=== PATIENT | female | born 1995 | race Caucasian/White ===

== ENCOUNTER 2024-05-28 19:07 | Emergency (ER) | payer MEDICAID, SELFPAY ==
[2024-05-28 19:19] VITALS: BP 117/83; PULSE 87; RESP 18; TEMP 36.2; O2SAT 96; BMI 18.5
[2024-05-28 19:28] VITALS: BP 117/83; PULSE 87; RESP 18; TEMP 36.2; O2SAT 96
--- NOTE | 2024-05-28 19:35 | CRLHL7_ITS ---
For Patients: As a result of the Century Cures Act, medical imaging exams and procedure reports are released immediately into your electronic medical record. You may view this report before your referring provider. If you have questions, please contact your health care provider. INDICATION: Headache, dizziness TECHNIQUE: Noncontrast axial CT of the head. Coronal and sagittal reformats. Bone and soft tissue algorithms. COMPARISON: None. FINDINGS: The ventricles and cortical sulci appear age-appropriate. No midline shift or mass effect. No acute intracranial hemorrhage or extra-axial fluid collection. Purvis-white matter differentiation is grossly maintained. White matter attenuation is within normal limits. Intracranial vessels are unremarkable for technique. Midline structures are unremarkable. The calvarium appears grossly intact. Visualized paranasal sinuses and mastoid air cells are clear. Orbits are unremarkable. IMPRESSION: 1. Unremarkable CT head. No evidence of acute intracranial abnormality. Please note that all CT scans at this facility use dose modulation, iterative reconstruction, and/or weight-based dosing when appropriate to reduce radiation dose to as low as reasonably achievable. Dictated by Myriam Gallegos MD @ 05/28/2024 8:40:30 PM (Electronically Signed)
--- NOTE | 2024-05-28 19:50 | ED.GENADULT ---
HPI - General Adult General Date Seen: 05/28/24 Chief complaint: Shortness of Breath/Dyspnea Stated complaint: shortness of breath, dizzy Time Seen by Provider: 05/28/24 19:12 Source: patient Mode of arrival: ambulatory Limitations: no limitations History of Present Illness HPI narrative: Patient is a 29-year-old female presenting to emergency department for multiple complaints. She has POTS and takes medication for it. States flu last week and a half she has been having shortness of breath, dizziness and leg pain. Has had shortness of breath before but she states this feels different. Started developing headache over the past 2 or 3 days and states are symptoms have gotten worse since that. States it feels like there is a band around her head. Is concerned because the dizziness and headache has been getting worse. Has had headaches before but she states this seems different. Also states that night both of her legs feel like they swell up and become very warm and make it difficult to sleep. The shortness of breath is also making it difficult to sleep she states. Has no history of blood clots. Has not had any fevers or chills. Has not noticed any chest pain. Does feel some burning epigastric pain she states. Has not had any vomiting but is nauseated. Taking Zofran at home without improvement in her symptoms. Has not noticed any numbness or vision changes. Related Data Allergies Allergy/AdvReac Type Severity Reaction Status Date / Time Penicillins Allergy Mild Verified 05/28/24 19:37 prednisone Allergy Mild Verified 05/28/24 19:37 Review of Systems Status of ROS: Reports: 10 or more systems reviewed and unremarkable except as noted in History and below [facility] Medical History POTS (postural orthostatic tachycardia syndrome) ?G90.A - Postural orthostatic tachycardia syndrome [POTS] (ICD-10) Social History Smoking Status: Never smoker How often do you have a drink containing alcohol: never AUDIT-C Alcohol total score: 0 Non-prescribed substance use: denies use service: No Exam Narrative: Exam Narrative: Const: Well-nourished, Well-developed, in mild distress Eyes: PERRL, no conjunctival injection, and symmetrical lids HENT: Atraumatic external nose and ears. Moist mucous membranes. Neck: Symmetric, trachea midline, No thyromegaly. CVS: RRR, No murmurs or gallops. Peripheral pulses 2+ and equal in all extremities, no lower extremity edema RESP: Unlabored respiratory effort. Clear to auscultation bilaterally. GI: Nontender/Nondistended, No rebound or guarding. MSK:Extremities w/o deformity, Normal Active ROM Skin: Warm, Dry. No rashes or lesions. Neuro: Normal Muscle tone, No focal neurological deficits. Psych: Awake, Alert, & Oriented x3. Appropriate mood and affect. Const: Vital Signs, click to edit/add: Vital Signs - 24 hr 05/28/24 19:19 05/28/24 19:28 05/28/24 20:39 Temperature 97.2 F L 97.2 F L 98.0 F Pulse Rate [Right Radial] 87 87 Respiratory Rate 18 18 Blood Pressure [Le ft Upper Arm] 117/83 117/83 Pulse Oximetry 96 96 Oxygen Delivery Me thod Room Air Room Air Course Vital Signs Vital signs: Initial Vital Signs Temperature 97.2 F L 05/28/24 19:19 Temperature Source Tympanic 05/28/24 19:19 Pulse Rate 87 05/28/24 19:19 Pulse Rhythm Regular 05/28/24 19:19 Pulse Strength 0+ Absent 05/28/24 19:19 Respiratory Rate 18 05/28/24 19:19 Blood Pressure 117/83 05/28/24 19:19 Blood Pressure Mean 94 05/28/24 19:19 Blood Pressure Position Supine 05/28/24 19:19 Pulse Oximetry 96 05/28/24 19:19 Oxygen Delivery Method Room Air 05/28/24 19:19 Vital Signs Temperature 97.2 F L 05/28/24 19:19 Pulse Rate 87 05/28/24 19:19 Respiratory Rate 18 05/28/24 19:19 Blood Pressure 117/83 05/28/24 19:19 Pulse Oximetry 96 05/28/24 19:19 Oxygen Delivery Method Room Air 05/28/24 19:19 Temperature 98.0 F 05/28/24 20:39 Pulse Rate 87 05/28/24 19:28 Respiratory Rate 18 05/28/24 19:28 Blood Pressure 117/83 05/28/24 19:28 Pulse Oximetry 96 05/28/24 19:28 Oxygen Delivery Method Room Air 05/28/24 19:28 Medications Administered Medications: Discontinued Medications Generic Name Dose Route Start Last Admin Trade Name Da PRN Reason Stop Dose Admin Sodium Chloride 1,000 mls @ 1,000 mls/hr 05/28/24 19:45 05/28/24 21:41 0.9 % Sodium Chloride 1000 Ml IV 05/28/24 20:44 Infused .Q1H FIDELINA Infusion Ketorolac Tromethamine 15 mg 05/28/24 19:35 05/28/24 20:39 Ketorolac 15 Mg/Ml Inj IVP 05/28/24 19:36 15 mg ONCE ONE Administration Ondansetron HCl 4 mg 05/28/24 19:35 05/28/24 20:38 Ondansetron 2 Mg/Ml Inj IVP 05/28/24 19:36 4 mg ONCE ONE Administration Medical Decision Making MDM Narrative Medical decision making narrative: Patient is a 29-year-old female presenting to the emergency department for several complaints. Is difficult to say if they are all related or not. The differential diagnosis of vertigo is broad and includes common etiologies such as menieres disease, labyrinthitis, benign positional vertigo, otitis media, etc. More serious etiologies considered include central etiologies such as tumor, intracerebral bleed, dissection, ischemic cerebral vascular accident. I have a pretty low concern for intracranial issues considering she describes her headache as a tension headache but patient is very concerned so I will do a CT scan of her head. Symptoms could also be from dehydration and will give her a migraine cocktail. She cannot take Benadryl so I will instead of doing Reglan and Benadryl try Zofran 1st. Will also give her Toradol for her headache and leg pain. The differential diagnosis of shortness of breath is broad and includes common etiologies such as COPD, asthma, pneumonia, viral syndrome, etc. More serious etiologies considered include PE, CHF, coronary artery disease, pneumothorax, aortic dissection, aortic aneurysm. She does have some asthma and has been using her inhaler at home without any improvement. Lung sound clear on my exam. This could all be related to a viral syndrome I will do a chest x-ray to look for signs of pneumonia pneumothorax. Will also order an EKG, troponin. D-dimer ordered to evaluate for PE. Patient is otherwise vitally stable an aortic dissection or aortic aneurysm seem unlikely. Patient's lab work returned showing no concerning abnormalities. D-dimer within normal limits. EKG and troponin showed no concerning abnormalities. Considering how long symptoms have been going on for do not believe repeat troponin is necessary. Viral swabs are negative. test is negative. CBC shows slightly low white blood cell count at 3.68 but unlikely to be cause of her symptoms unless she has some sort of viral syndrome. Head CT reviewed by myself and the radiologist showed no acute concerning abnormalities. Chest x-ray reviewed by myself and radiologist showed no acute concerning abnormalities. She has had some improvement in her nausea with the Zofran but no improvement in her dizziness. She describes as a vertigo sensation. States she has tried Antivert at home without any improvement in her symptoms. She also takes Ativan at home with no improvement in her symptoms. I offered her sumatriptan possibly help with the headache but she has refused at this time as she is hesitant to take medications as she states she is very sensitive to lab. At this point I have rule out emergent issues. I do not know why she is having the symptoms but again I do not see any signs of emergent issues. Patient will be discharged she is agreeable to this plan Lab Data Labs: Lab Results 05/28/24 05/28/24 05/28/24 Range/Units 19:35 20:26 20:26 WBC 3.68 L (4.50-11.00) K/uL RBC 5.12 (4.00-5.20) m/uL Hgb 15.6 (12.0-16.0) gm/dL Hct 46.2 (33.0-51.0) % MCV 90 (80-100) fL MCH 31 (26-34) pg MCHC 34 (32-36) gm/dL RDW Coeff of Rose 11.8 (11.5-15.5) % Plt Count 212 (140-440) K/uL Neut % (Auto) 51.6 (42.0-72.0) % Lymph % (Auto) 38.3 (20-44) % Bureau % (Auto) 7.1 (0.0-11.0) % Eos % (Auto) 2.7 (0.0-7.0) % Baso % (Auto) 0.3 (0.0-3.0) % Neut # (Auto) 1.90 (1.7-7.0) K/uL Lymph # (Auto) 1.40 (0.90-2.90) K/uL Bureau # (Auto) 0.30 (0.00-0.90) K/UL Eos # (Auto) 0.10 (0.00-0.50) K/uL Baso # (Auto) 0.00 (0.00-0.30) K/uL Abs Immat Gran (auto) 0.00 (0.00-0.30) K/uL Imm/Tot Granulo (auto) 0.0 % D-Dimer Quant (PE/DVT) 0.21 (0.00-0.50) ug/ml Sodium 140 (135-149) mmol/L Potassium 3.8 (3.6-5.1) mmol/L Chloride 104 (96-114) mmol/L Carbon Dioxide 26 (20-32) mmol/L Anion Gap 10 (7-15) mEq/L BUN 10 (5-24) mg/dL Creatinine 0.7 (0.5-1.5) mg/dL Estimated Creat Clear 99.30 Estimated GFR 119 ml/min Glucose 86 (60-115) mg/dL Calcium 9.2 (8.4-10.6) mg/dL Magnesium 2.3 (1.5-2.6) mg/dL Total Bilirubin 0.3 (0.1-1.5) mg/dL AST 29 (12-35) U/L ALT 23 (4-35) U/L Alkaline Phosphatase 65 (40-150) U/L Troponin I < 0.01 L (0.01-0.04) ng/mL Total Protein 7.6 (6.0-8.3) g/dL Albumin 4.8 (3.3-5.0) g/dL Lipase 193 Cancelled (23-300) U/L HCG, Qual Negative (Negative) SARS-CoV-2 (PCR) Negative SARS-CoV-2 (Negative) Influenza Type A (PCR) Negative PCR FLU A (Negative) Influenza Type B (PCR) Negative PCR FLU B (Negative) RSV (PCR) Negative PCR RSV (Negative) Imaging Data CT scan - head: Attestation: I have reviewed the pertinent imaging results. Radiologist's impression: 1. Unremarkable CT head. No evidence of acute intracranial abnormality. Please note that all CT scans at this facility use dose modulation, iterative reconstruction, and/or weight-based dosing when appropriate to reduce radiation dose to as low as reasonably achievable. Dictated by Myriam aGllegos MD @ 05/28/2024 8:40:30 PM Chest x-ray: Attestation: I have reviewed the pertinent imaging results. Radiologist's impression: No evidence of an acute pulmonary process. Dictated by Remi Carpenter MD @ 05/28/2024 9:40:52 PM ECG Data Attestation: I personally reviewed and interpreted this ECG as follows: Prior ECG tracings: not available for review Interpretation: Normal sinus rhythm with rate 73 beats per minute, normal intervals, normal axis, no ST or T-wave abnormalities Discharge Plan Discharge Clinical Impression: Nausea, Shortness of breath, Dizziness Headache Qualifiers: Headache type: tension-type Headache chronicity pattern: acute headache Intractability: not intractable Qualified Code(s): G44.209 - Tension-type headache, unspecified, not intractable Patient Disposition: Home, Self-Care Condition: Stable Instructions: Dizziness (ED) Additional Instructions: At this point I do not know what is causing her symptoms. Could be a virus but I am not finding any emergent issues on your imaging or lab work. Recommend close follow-up with your primary care provider. If symptoms worsen return for re-evaluation. Follow Up/Referrals: Provider,Not a Local [Primary Care Provider] - Stand Alone Forms: [employer] Info Instructions
--- NOTE | 2024-05-28 20:12 | CRLHL7_ITS ---
For Patients: As a result of the Century Cures Act, medical imaging exams and procedure reports are released immediately into your electronic medical record. You may view this report before your referring provider. If you have questions, please contact your health care provider. INDICATION: Shortness of breath. TECHNIQUE: Chest 2 views. COMPARISON: None. FINDINGS: Cardiovascular and mediastinum: Heart size and vasculature are normal in caliber and appearance. Lungs and pleural spaces: No focal consolidation, pleural effusion, or pneumothorax. Bones and soft tissues: Unremarkable for age. IMPRESSION: No evidence of an acute pulmonary process. Dictated by Remi Carpenter MD @ 05/28/2024 9:40:52 PM (Electronically Signed)
[2024-05-28 20:33] LABS: Basophils Percent Auto 0.3 % (0.0-3.0); Eosinophils Percent Auto 2.7 % (0.0-7.0); Hematocrit 46.2 % (33.0-51.0); Hemoglobin* 15.6 gm/dL (12.0-16.0); Lymphocytes Percent Auto 38.3 % (20-44); Mean Corpuscular HGB Conc 34 gm/dL (32-36); Mean Corpuscular Hemoglobin 31 pg (26-34); Mean Corpuscular Volume 90 fL (80-100); Monocytes Percent Auto 7.1 % (0.0-11.0); Neutrophils Percent Auto 51.6 % (42.0-72.0); Platelet Count* 212 K/uL (140-440); RDW Coefficient of Variation % 11.8 % (11.5-15.5); Red Blood Count 5.12 m/uL (4.00-5.20); White Blood Count* 3.68 K/uL (4.50-11.00)
[2024-05-28] MEDS: ONDANSETRON 2 MG/ML inj 4 MG IVP (20:38)
[2024-05-28 20:39] VITALS: TEMP 36.7
[2024-05-28] MEDS: KETOROLAC 15 MG/ML inj IVP (20:39)
[2024-05-28] MEDS: 0.9 % SODIUM CHLORIDE 1000 ml 1,000 ML IV (20:39)
[2024-05-28 20:58] LABS: Slide Review Reflex No
[2024-05-28 21:00] LABS: D Dimer Quantitative* 0.21 ug/ml (0.00-0.50)
[2024-05-28 21:09] LABS: PCR FLU A Negative PCR FLU A (Negative); PCR FLU B Negative PCR FLU B (Negative); PCR RSV Negative PCR RSV (Negative); SARS PCR* Negative SARS-CoV-2 (Negative)
[2024-05-28 21:10] LABS: Albumin* 4.8 g/dL (3.3-5.0); Chloride* 104 mmol/L (96-114); Potassium* 3.8 mmol/L (3.6-5.1); Sodium* 140 mmol/L (135-149)
[2024-05-28 21:12] LABS: Anion Gap 10 mEq/L (7-15); Bilirubin Total* 0.3 mg/dL (0.1-1.5); Carbon Dioxide* 26 mmol/L (20-32); Creatinine* 0.7 mg/dL (0.5-1.5); Estimated Glomerular Filt Rate 119 ml/min
[2024-05-28 21:13] LABS: Alanine Aminotransferase* 23 U/L (4-35); Alkaline Phosphatase* 65 U/L (40-150); Aspartate Amino Transferase* 29 U/L (12-35); Blood Urea Nitrogen* 10 mg/dL (5-24); Calcium* 9.2 mg/dL (8.4-10.6); Glucose* 86 mg/dL (60-115); HCG Qualitative Serum* Negative (Negative); Lipase* 193 U/L (23-300); Magnesium* 2.3 mg/dL (1.5-2.6); Total Protein* 7.6 g/dL (6.0-8.3)
[2024-05-28 21:29] LABS: Troponin I* < 0.01 ng/mL (0.01-0.04)
[2024-05-28 21:56] VITALS: BP 121/79; PULSE 79; RESP 18; TEMP 36.7; O2SAT 96
[2024-05-28 21:57] VITALS: BP 121/79; PULSE 79; RESP 18; TEMP 36.7
== END 2024-05-28 21:57 | disposition home or self-care (01) ==
PROVIDERS: Emergency Provider Student in an Organized Health Care Education/Training Program
DX: R06.02 Shortness of breath (principal); G44.209 Tension-type headache, unspecified, not intractable
CPT/HCPCS: 36415; 70450; 71046; 80053; 83690; 83735; 84484; 84703; 85025; 85379; 87631; 96374; 96375; 99284; J1885; J2405; J7030